=== PATIENT | male | born 1980 | race Caucasian/White ===

== ENCOUNTER → 2017-06-29 | Outpatient (CLI) | payer OTHER ==
[~2017-06-29] MED LIST: BUPRTAB51 PO; MULT-506 PO; OMEP20CA59 PO
[2017-06-29 10:18] LABS: BASO % 0.2 %; BASO ABS # 0.01 K/uL (0-0.2); EOS % 3.4 %; HEMATOCRIT 40.3 % (42-52); HEMOGLOBIN 13.7 g/dL (14.0-18.0); IG# 0.03 K/uL (0.00-0.02); LYMPH % 26.8 %; LYMPH ABS # 1.57 K/uL (1.2-3.4); MEAN CELL VOLUME 87.4 fL (80-100); MEAN CORPUSCULAR HEMOGLOBIN 29.7 pg (25-34); MONO % 4.1 %; MONO ABS # 0.24 K/uL (0.11-0.59); PLATELET COUNT 219 K/uL (130-400); RED CELL DISTRIBUTION WIDTH CV 12.8 % (11.5-14.5); RED CELL DISTRIBUTION WIDTH SD 41.3 fL (36.4-46.3); WHITE BLOOD COUNT 5.85 K/uL (4.8-10.8)
[2017-06-29 10:48] LABS: ALBUMIN 3.5 gm/dl (3.4-5.0); ALT/SGPT 28 U/L (12-78); AST/SGOT 15 U/L (15-37); BLOOD UREA NITROGEN 15 mg/dl (7-18); CALCIUM 8.6 mg/dl (8.5-10.1); CARBON DIOXIDE 30 mmol/L (21-32); CREATININE 0.99 mg/dl (0.60-1.40); GLUCOSE 95 mg/dl (70-99); POTASSIUM 3.9 mmol/L (3.5-5.1); SODIUM 141 mmol/L (136-145)
[2017-06-29 10:51] LABS: ALKALINE PHOSPHATASE 66 U/L (45-117); TOTAL PROTEIN 7.2 gm/dl (6.4-8.2)
== END | disposition home or self-care (01) ==
LOC: C.LAB1850 09:24
PROVIDERS: ATTEND Internal Medicine Pulmonary Disease
DX: L50.8 Other urticaria (principal)

== ENCOUNTER 2022-03-12 20:19 | Inpatient (IN) ==
--- NOTE | 2022-03-12 20:46 | XRay Report ---
XR chest 1V portable HISTORY: 41 years-old Male hypertension acute hypertension COMPARISON: None TECHNIQUE: AP view of the chest FINDINGS: Cardiomediastinal and hilar silhouettes are within normal limits. No pneumothorax, pleural effusion, airspace consolidation or overt pulmonary edema. Bones of the chest appear grossly intact. IMPRESSION: No acute process. ACT 112: Negative or not required by law. The above report was generated using voice recognition software. It may contain grammatical, syntax o r spelling errors. Electronically signed by: Caleb Johnson M.D. 03/12/2022 8:45 PM
[2022-03-12 20:53] LABS: Basophils # (auto) 0.06 K/uL (0-0.2); Basophils % (auto) 0.6 %; Eosinophils # (auto) 0.18 K/uL (0-0.50); Eosinophils % (auto) 1.7 %; Hematocrit (blood only) 46.7 % (40.1-51.0); Hemoglobin 16.8 g/dl (14.0-18.0); Immature Granulocytes # (auto) 0.04 K/uL (0.00-0.02); Immature Granulocytes % (auto) 0.4 %; Lymphocytes # (auto) 2.21 K/uL (1.2-3.4); Lymphocytes % (auto) 21.4 %; Mean Corpuscular Volume 86.2 fL (80.0-100.0); Mean Platelet Volume 8.8 fL (9.4-12.4); Monocytes # (auto) 0.65 K/uL (0.24-0.82); Monocytes % (auto) 6.3 %; Neutrophils # (auto) 7.21 K/uL (1.4-6.5); Neutrophils % (auto) 69.6 %; Platelet Count 234 K/uL (130-400); RDW Coefficient of Variation 12.5 % (11.5-14.5); RDW Standard Deviation 38.6 fL (36.4-46.3); Red Blood Count 5.42 M/uL (4.63-6.08); White Blood Count 10.35 K/ul (4.8-10.8)
--- NOTE | 2022-03-12 20:53 | CT Scan Report ---
CT head/brain wo con CLINICAL HISTORY: 41 years-old Male with hypertension, VALENTINO. Acute hypertension with headache TECHNIQUE: Multiple axial CT images of the head were obtained without contrast. A dose lowering tech nique was utilized adhering to the principles of ALARA. CT DOSE: 884.08 mGy.cm COMPARISON: None. FINDINGS: No acute intracranial hemorrhage, midline shift, intracranial mass, hydrocephalus, territorial ischem ia or abnormal extra-axial collection. Low-lying cerebellar tonsils. Mildly motion degraded exam. The calvarium is intact. The paranasal sinuses, mastoid air cells, and middle ear cavities are clear . IMPRESSION: No acute intracranial abnormality. ACT 112: Negative or not required by law. The above report was generated using voice recognition software. It may contain grammatical, syntax o r spelling errors. Electronically signed by: Caleb Johnson M.D. 03/12/2022 8:50 PM
[2022-03-12 21:20] LABS: Albumin Globulin Ratio 1.4 (0.9-2); Albumin Level 4.6 gm/dl (3.4-5.0); BUN Creatinine Ratio 12.6 (10-20); Bilirubin,Total 1.1 mg/dl (0.2-1.0); Calcium 9.3 mg/dl (8.5-10.1); Creatinine Clr Calc Pharmacy 148.4 ml/min; Est GFR (African American) 115.6 ml/min; Est GFR (Non-African American) 99.7 ml/min; Globulin 3.4 gm/dl (2.5-4.0); Potassium 3.1 mmol/L (3.5-5.1)
[2022-03-12] MEDS ORDERED: LORazepam 2 MG/1 ML VIAL ONE (23:16)
[2022-03-12] MEDS ORDERED: SODIUM CHLORIDE 0.9% 1,000 ML IV ONE (23:31)
[2022-03-12] MEDS ORDERED: LORazepam 2 MG/1 ML VIAL IV STA (23:31)
[2022-03-13] MEDS ORDERED: LORazepam 2 MG/1 ML VIAL IV STA ×2 (00:07→03:49)
[2022-03-13] MEDS ORDERED: SODIUM CHLORIDE 0.9% 1000ML 1,000 ML IV ONE (00:33)
[2022-03-13] MEDS ORDERED: MULTI-VITAMIN INFUSION 10 ML, THIAMINE HCL 100 MG, FOLIC ACID 1 MG in SODIUM CHLORIDE 0... IV ONE (00:50)
--- NOTE | 2022-03-13 00:59 | Emergency Department Note ---
Impression & Plan Alcohol withdrawal, [facility] NAME: NAKIA CHAVEZ AGE: 41 SEX: M ARRIVES VIA: Walk-In INFORMANT: Patient ED PROVIDER(S): Thais Huizar DO CHIEF COMPLAINT: Alcohol withdrawal and anxiety PLAN: Disposition: Admit to the [facility] Condition: Stable MEDICAL DECISION MAKING: This is a 41-year-old male patient presents to the emergency department complaining of alcohol withdrawal and anxiety. The patient has had significant increase in alcohol use over the past couple of months as a result of stress related to his divorce. He presented to the emergency department tonight with a headache and hypertension along with vomiting and sweating. He admits that he decided to stop drinking today and believes he is withdrawing. The patient is significantly hypertensive and tachycardic. He has a normal CT scan of the brain and negative chest x-ray. He does have a low sodium, chloride, and potassium. He has slight elevation to total bilirubin, AST and ALT. Patient was bolused with IV normal saline solution and a banana bag. He was given multiple doses of IV Ativan to help with his anxiety and elevated blood pressure. He was given a dose of IV labetalol to bring the heart rate and blood pressure down as well. Patient also was given a dose of oral Librium. After review of the information above and other included data, I feel the patient will require admission to the hospital. [facility] and [facility] will evaluate for further management. Triage Nursing notes reviewed and agree with them. Vital Signs: reviewed and remarkable for hypertension and tachycardia Differential diagnosis: Mood disorder, alcohol withdrawal, hypertensive crisis, hypertensive urgency ER treatment provided: IV Ativan x2 IV normal saline IV banana bag IV labetalol Oral Librium Twelve-lead EKG radiation monitor Diagnostics interpreted by me: ECG: Sinus tachycardia at a rate of [address] segment elevation or signs of ischemia. There is no ectopy. Cardiac Monitoring: Sinus tachycardia at 110 Laboratory studies: See below Imaging studies: As per my interpretation Portable chest x-ray: No acute pulmonary findings HPI: 41/M arrives for evaluation of headache and hypertension. ROS: See above HPI for pertinent positives & negatives. A total of 10 systems reviewed and were otherwise negative. PAST MEDICAL HISTORY:Hypertension; GERD; anxiety PAST SURGICAL HISTORY:See Below FAMILY HISTORY:See Below SOCIAL HISTORY:Patient works as a [employer] company; he is going through a divorce; he does drink alcohol HOME MEDICATIONS:See list ALLERGIES:None VITALS:See Below PHYSICAL EXAMINATION: HEENT: Head - normocephalic and atraumatic. Pupils are equal, round, and reactive to light. Extraocular eye muscles are intact, and sclera are anict douglas. Nose - moist nasal mucosa without discharge. Mouth - moist buccal mucosa. Oropharynx is nonerythematous and there is no tonsillar exudate or edema noted. Neck: Supple; no cervical lymphadenopathy or JVD Heart: Tachycardic rate and regular rhythm. There is a normal S1 and S2 with no murmurs, clicks, or gallops appreciated. Lungs: Clear to auscultation bilaterally with no wheezes, rales, or rhonchi. Abdomen: Soft, completely nontender, nondistended, with good bowel sounds. There are no palpable pulsatile masses or hepatosplenomegaly. There is no guarding, rigidity, or rebound noted. Extremities: No evidence of cyanosis, clubbing, or edema. There are easily palpable peripheral pulses. Skin: warm and dry with good turgor and no rashes. ED COURSE: Times/Reassessments: 2305: Patient was evaluated in room C1. IV lock was initiated and labs are drawn as above. An order was placed for continuous cardiac monitoring. The patient was in a sinus tachycardia at a rate of 110. A twelve-lead EKG was obtained as described above. Patient was bolused with 1 L of normal saline solution. He was given a dose of IV Ativan. This did bring the blood pressure down slightly and did control his anxiety. A portable chest x-ray was performed. Patient was reevaluated and he was feeling slightly better. He was given a se cond dose of IV Ativan. Patient remained hypertensive and was given a dose of IV labetalol. An alcohol level was drawn and found to be 0. The patient was started on a banana bag and given a dose of oral Librium. I had a lengthy conversation with the patient about his alcohol abuse. I discussed the case with the [facility] Hospitalist. Thais Huizar DO Past Med/Surg History Medical History (Updated 03/13/22 @ 06:49 by Thais Huizar DO) Depression GERD (gastroesophageal reflux disease) Hypertension Obesity Surgical History (Updated 09/10/21 @ 16:50 by Fredi Jackson MD) No pertinent past surgical history Social History (Updated 09/10/21 @ 16:50 by Fredi Jackson MD) Smoking Status: Former smoker Tobacco Type: Cigarettes Hx Alcohol Use: Yes Alcohol type: hard liquor Hx Substance Use: No Preferred Language: Tunisian [employer] Required: No Beliefs That Will Affect Care: None Current Living Situation: Alone Feels Safe at Home: Yes Allergies Allergies Allergy/AdvReac Type Severity Reaction Status Date / Time No Known Allergies Allergy Unknown Verified 03/12/22 22:54 Home Meds Home Medications Medication Instructions Recorded Confirmed bupropion HCl 300 mg 24 hr tablet, 300 mg PO DAILY 03/12/22 03/12/22 extended release lisinopril 20 1 tab PO DAILY 03/12/22 03/12/22 mg-hydrochlorothiazide 25 mg tablet omeprazole 40 mg capsule,delayed 40 mg PO DAILY 03/12/22 03/12/22 release Results & Data (ED) Vital Signs Vital Signs - 24 hr 03/12/22 20:20 03/12/22 23:00 03/12/22 23:23 Temperature 36.5 C Temperature Source Temporal Artery Scan Pulse Rate 123 H Pulse Rate [Apical] 106 H 109 H Pulse Rate from SpO2 Sensor Pulse Rhythm [Apical] Regular Respiratory Rate 20 17 20 Respiratory Effort / Characteristics Non-Labored Spontaneous Non-Labored Respiratory Depth Normal Normal Blood Pressure 205/123 H Blood Pressure [Right Arm] 233/149 H 163/103 H Blood Pressure Mean 150 Blood Pressure Mean [Right Arm] 177 123 Blood Pressure Position Sitting Pulse Oximetry 96 96 95 Oxygen Delivery Method Room Air Room Air Sepsis Recent Fever Within 48 Hours No Sepsis New/Unexplained Change in Mental Status N/A Sepsis Action Taken by Nursing No Action Required 03/13/22 00:00 03/12/22 22:58 03/12/22 23:00 Temperature Temperature Source Pulse Rate 120 H 115 H Pulse Rate [Apical] 100 H Pulse Rate from SpO2 Sensor 120 H 114 H Pulse Rhythm [Apical] Regular Respiratory Rate 18 22 17 Respiratory Effort / Characteristics Respiratory Depth Blood Pressure Blood Pressure [Right Arm] 156/104 H Blood Pressure Mean Blood Pressure Mean [Right Arm] 121 Blood Pressure Position Pulse Oximetry 95 96 97 Oxygen Delivery Method Room Air Sepsis Recent Fever Within 48 Hours Sepsis New/Unexplained Change in Mental Status Sepsis Action Taken by Nursing 03/12/22 23:23 03/12/22 23:23 03/12/22 23:30 Temperature Temperature Source Pulse Rate 114 H 104 H Pulse Rate [Apical] Pulse Rate from SpO2 Sensor 110 H 103 H Pulse Rhythm [Apical] Respiratory Rate 19 18 Respiratory Effort / Characteristics Respiratory Depth Blood Pressure 163/103 H Blood Pressure [Right Arm] Blood Pressure Mean 123 Blood Pressure Mean [Right Arm] Blood Pressure Position Pulse Oximetry 92 95 Oxygen Delivery Method Sepsis Recent Fever Within 48 Hours Sepsis New/Unexplained Change in Mental Status Sepsis Action Taken by Nursing 03/13/22 00:00 03/13/22 00:30 03/13/22 01:00 Temperature Temperature Source Pulse Rate 106 H 110 H 106 H Pulse Rate [Apical] Pulse Rate from SpO2 Sensor 105 H 110 H 106 H Pulse Rhythm [Apical] Respiratory Rate 19 20 22 Respiratory Effort / Characteristics Respiratory Depth Blood Pressure Blood Pressure [Right Arm] Blood Pressure Mean Blood Pressure Mean [Right Arm] Blood Pressure Position Pulse Oximetry 96 94 96 Oxygen Delivery Method Sepsis Recent Fever Within 48 Hours Sepsis New/Unexplained Change in Mental Status Sepsis Action Taken by Nursing 03/13/22 01:30 03/13/22 01:30 03/13/22 02:00 Temperature Temperature Source Pulse Rate 100 H 87 Pulse Rate [Apical] Pulse Rate from SpO2 Sensor 101 H 88 Pulse Rhythm [Apical] Respiratory Rate 18 19 Respiratory Effort / Characteristics Respiratory Depth Blood Pressure 182/118 H 169/109 H Blood Pressure [Right Arm] Blood Pressure Mean 139 129 Blood Pressure Mean [Right Arm] Blood Pressure Position Pulse Oximetry 97 94 Oxygen Delivery Method Sepsis Recent Fever Within 48 Hours Sepsis New/Unexplained Change in Mental Status Sepsis Action Taken by Nursing 03/13/22 02:30 03/13/22 02:30 03/13/22 02:45 Temperature Temperature Source Pulse Rate 83 92 H Pulse Rate [Apical] Pulse Rate from SpO2 Sensor 89 91 H Pulse Rhythm [Apical] Respiratory Rate 19 17 Respiratory Effort / Characteristics Respiratory Depth Blood Pressure 161/113 H Blood Pressure [Right Arm] Blood Pressure Mean 129 Blood Pressure Mean [Right Arm] Blood Pressure Position Pulse Oximetry 96 97 Oxygen Delivery Method Sepsis Recent Fever Within 48 Hours Sepsis New/Unexplained Change in Mental Status Sepsis Action Taken by Nursing 03/13/22 03:00 03/13/22 03:15 03/13/22 03:15 Temperature Temperature Source Pulse Rate 93 H 85 Pulse Rate [Apical] Pulse Rate from SpO2 Sensor 91 H Pulse Rhythm [Apical] Respiratory Rate 20 22 Respiratory Effort / Characteristics Respiratory Depth Blood Pressure 181/122 H Blood Pressure [Right Arm] Blood Pressure Mean 141 Blood Pressure Mean [Right Arm] Blood Pressure Position Pulse Oximetry 97 Oxygen Delivery Method Sepsis Recent Fever Within 48 Hours Sepsis New/Unexplained Change in Mental Status Sepsis Action Taken by Nursing 03/13/22 03:16 03/13/22 03:17 03/13/22 03:17 Temperature Temperature Source Pulse Rate 85 90 Pulse Rate [Apical] Pulse Rate from SpO2 Sensor 85 89 Pulse Rhythm [Apical] Respiratory Rate 22 25 H Respiratory Effort / Characteristics Respiratory Depth Blood Pressure 174/124 H Blood Pressure [Right Arm] Blood Pressure Mean 140 Blood Pressure Mean [Right Arm] Blood Pressure Position Pulse Oximetry 96 96 Oxygen Delivery Method Sepsis Recent Fever Within 48 Hours Sepsis New/Unexplained Change in Mental Status Sepsis Action Taken by Nursing 03/13/22 03:30 03/13/22 03:40 03/13/22 03:40 Temperature Temperature Source Pulse Rate 84 87 Pulse Rate [Apical] Pulse Rate from SpO2 Sensor 89 86 Pulse Rhythm [Apical] Respiratory Rate 19 23 Respiratory Effort / Characteristics Respiratory Depth Blood Pressure 175/120 H 175/120 H Blood Pressure [Right Arm] Blood Pressure Mean 138 138 Blood Pressure Mean [Right Arm] Blood Pressure Position Pulse Oximetry 96 96 Oxygen Delivery Method Sepsis Recent Fever Within 48 Hours Sepsis New/Unexplained Change in Mental Status Sepsis Action Taken by Nursing 03/13/22 03:45 03/13/22 04:00 03/13/22 04:01 Temperature Temperature Source Pulse Rate 85 89 Pulse Rate [Apical] Pulse Rate from SpO2 Sensor 88 Pulse Rhythm [Apical] Respiratory Rate 20 19 Respiratory Effort / Characteristics Respiratory Depth Blood Pressure 185/130 H Blood Pressure [Right Arm] Blood Pressure Mean 148 Blood Pressure Mean [Right Arm] Blood Pressure Position Pulse Oximetry 93 Oxygen Delivery Method Sepsis Recent Fever Within 48 Hours Sepsis New/Unexplained Change in Mental Status Sepsis Action Taken by Nursing 03/13/22 04:01 Temperature Temperature Source Pulse Rate 89 Pulse Rate [Apical] Pulse Rate from SpO2 Sensor 89 Pulse Rhythm [Apical] Respiratory Rate 21 Respiratory Effort / Characteristics Respiratory Depth Blood Pressure Blood Pressure [Right Arm] Blood Pressure Mean Blood Pressure Mean [Right Arm] Blood Pressure Position Pulse Oximetry 94 Oxygen Delivery Method Sepsis Recent Fever Within 48 Hours Sepsis New/Unexplained Change in Mental Status Sepsis Action Taken by Nursing Laboratory Data Result diagrams: 03/12/22 20:36 03/12/22 20:36 Lab Results 03/12/22 03/12/22 03/13/22 Range/Units 20:36 20:36 01:20 WBC 10.35 (4.8-10.8) K/ul RBC 5.42 (4.63-6.08) M/uL Hgb 16.8 (14.0-18.0) g/dl Hct 46.7 (40.1-51.0) % MCV 86.2 (80.0-100.0) fL MCH 31.0 (25.0-34.0) pg MCHC 36.0 (32.0-36.0) g/dL RDW Std Deviation 38.6 (36.4-46.3) fL RDW Coeff of Sveta 12.5 (11.5-14.5) % Plt Count 234 (130-400) K/uL MPV 8.8 L (9.4-12.4) fL Immature Gran % (Auto) 0.4 % Neut % (Auto) 69.6 % Lymph % (Auto) 21.4 % Whitfield % (Auto) 6.3 % Eos % (Auto) 1.7 % Baso % (Auto) 0.6 % Neut # (Auto) 7.21 H (1.4-6.5) K/uL Lymph # (Auto) 2.21 (1.2-3.4) K/uL Whitfield # (Auto) 0.65 (0.24-0.82) K/uL Eos # (Auto) 0.18 (0-0.50) K/uL Baso # (Auto) 0.06 (0-0.2) K/uL Immature Gran # (Auto) 0.04 H (0.00-0.02) K/uL Sodium 133 L (136-145) mmol/L Potassium 3.1 L (3.5-5.1) mmol/L Chloride 95 L (98-107) mmol/L Carbon Dioxide 28 (21-32) mmol/L Anion Gap 10 (3-11) BUN 12 (6-23) mg/dl Creatinine 0.95 (0.6-1.4) mg/dl Est Cr Clr Drug Dosing 148.4 ml/min Est GFR ( Amer) 115.6 ml/min Est GFR (Non-Af Amer) 99.7 ml/min BUN/Creatinine Ratio 12.6 (10-20) Glucose 127 H (70-99(Fasting)) mg/dl Calcium 9.3 (8.5-10.1) mg/dl Magnesium (1.7-2.4) mg/dl Total Bilirubin 1.1 H (0.2-1.0) mg/dl AST 51 H (13-39) U/L ALT 78 H (7-52) U/L Alkaline Phosphatase 57 (34-104) U/L Total Protein 8.0 (6.0-8.3) gm/dl Albumin 4.6 (3.4-5.0) gm/dl Globulin 3.4 (2.5-4.0) gm/dl Albumin/Globulin Ratio 1.4 (0.9-2) Ethyl Alcohol mg/dL < 10.0 (<10.0) mg/dl SARS-CoV-2, RNA, NAAT (NEGATIVE) 03/13/22 03/13/22 Range/Units 01:20 04:04 WBC (4.8-10.8) K/ul RBC (4.63-6.08) M/uL Hgb (14.0-18.0) g/dl Hct (40.1-51.0) % MCV (80.0-100.0) fL MCH (25.0-34.0) pg MCHC (32.0-36.0) g/dL RDW Std Deviation (36.4-46.3) fL RDW Coeff of Sveta (11.5-14.5) % Plt Count (130-400) K/uL MPV (9.4-12.4) fL Immature Gran % (Auto) % Neut % (Auto) % Lymph % (Auto) % Whitfield % (Auto) % Eos % (Auto) % Baso % (Auto) % Neut # (Auto) (1.4-6.5) K/uL Lymph # (Auto) (1.2-3.4) K/uL Whitfield # (Auto) (0.24-0.82) K/uL Eos # (Auto) (0-0.50) K/uL Baso # (Auto) (0-0.2) K/uL Immature Gran # (Auto) (0.00-0.02) K/uL Sodium (136-145) mmol/L Potassium (3.5-5.1) mmol/L Chloride (98-107) mmol/L Carbon Dioxide (21-32) mmol/L Anion Gap (3-11) BUN (6-23) mg/dl Creatinine (0.6-1.4) mg/dl Est Cr Clr Drug Dosing ml/min Est GFR ( Amer) ml/min Est GFR (Non-Af Amer) ml/min BUN/Creatinine Ratio (10-20) Glucose (70-99(Fasting)) mg/dl Calcium (8.5-10.1) mg/dl Magnesium 1.9 (1.7-2.4) mg/dl Total Bilirubin (0.2-1.0) mg/dl AST (13-39) U/L ALT (7-52) U/L Alkaline Phosphatase (34-104) U/L Total Protein (6.0-8.3) gm/dl Albumin (3.4-5.0) gm/dl Globulin (2.5-4.0) gm/dl Albumin/Globulin Ratio (0.9-2) Ethyl Alcohol mg/dL (<10.0) mg/dl SARS-CoV-2, RNA, NAAT NEGATIVE (NEGATIVE) Administered Medications Potassium Chloride (K Kervin / Wtr) 10 meq in 100 mls @ 100 mls/hr IV Q1H [facility] Stop: 03/13/22 07:59 Last Admin: 03/13/22 06:50 Dose: 100 mls/hr Documented By: Infusion: 03/13/22 06:49 Dose: 0 mls/hr Documented By: Admin: 03/13/22 05:45 Dose: 100 mls/hr Documented By: Infusion: 03/13/22 05:45 Dose: 0 mls/hr Documented By: Admin: 03/13/22 04:39 Dose: 100 mls/hr Documented By: EMB Discontinued Medications Chlordiazepoxide HCl (Chlordiazepoxide Hcl 25 Mg Cap) 50 mg PO NOW ONE Stop: 03/13/22 02:35 Last Admin: 03/13/22 02:52 Dose: 50 mg Documented By: EMB Clonidine HCl (Clonidine Hcl 0.1 Mg Tab) 0.2 mg PO NOW ONE Stop: 03/13/22 03:51 Last Admin: 03/13/22 03:58 Dose: 0.2 mg Documented By: GEE Sodium Chloride (Nss) 1,000 mls @ 999 mls/hr IV .Q1H1M ONE Stop: 03/13/22 00:31 Last Infusion: 03/13/22 00:45 Dose: 0 mls/hr Documented By: Admin: 03/12/22 23:32 Dose: 999 mls/hr Documented By: GEE Sodium Chloride (Nss 1000ml) 1,000 mls @ 999 mls/hr IV .Q1H1M ONE Stop: 03/13/22 01:33 Last Infusion: 03/13/22 02:00 Dose: 0 mls/hr Documented By: Admin: 03/13/22 00:44 Dose: 999 mls/hr Documented By: GEE Multivitamins 10 ml/ Thiamine HCl 100 mg/ Folic Acid 1 mg/Sodium Chloride 1,011.2 mls @ 1,011.2 mls/hr IV .Q1H ONE Stop: 03/13/22 01:49 Last Infusion: 03/13/22 02:57 Dose: 0 mls/hr Documented By: Admin: 03/13/22 01:57 Dose: 1,011.2 mls/hr Documented By: GEE Labetalol HCl (Labetalol Hcl Iv 5 Mg/Ml 20ml) 10 mg IV NOW STA Stop: 03/13/22 01:46 Last Admin: 03/13/22 01:57 Dose: 10 mg Documented By: GEE Co-signed By: DARBY Lorazepam (Lorazepam 2 Mg/1 Ml Vial) Confirm Administered Dose 2 mg .ROUTE .STK- MED ONE Stop: 03/12/22 23:17 Last Admin: 03/12/22 23:32 Dose: Not Given Documented By: GEE Lorazepam (Lorazepam 2 Mg/1 Ml Vial) 1 mg IV NOW STA Stop: 03/12/22 23:32 Last Admin: 03/12/22 23:32 Dose: 1 mg Documented By: GEE Lorazepam (Lorazepam 2 Mg/1 Ml Vial) 1 mg IV NOW STA Stop: 03/13/22 00:08 Last Admin: 03/13/22 00:16 Dose: 1 mg Documented By: GEE Lorazepam (Lorazepam 2 Mg/1 Ml Vial) 1 mg IV NOW STA Stop: 03/13/22 03:50 Last Admin: 03/13/22 03:58 Dose: 1 mg Documented By: EMB Imaging Data Radiologist's Impression: Chest X-Ray 03/12/22 20:27 XR chest 1V portable HISTORY: 41 years-old Male hypertension acute hypertension COMPARISON: None TECHNIQUE: AP view of the chest FINDINGS: Cardiomediastinal and hilar silhouettes are within normal limits. No pneumothorax, pleural effusion, airspace consolidation or overt pulmonary edema. Bones of the chest appear grossly intact. IMPRESSION: No acute process. ACT 112: Negative or not required by law. The above report was generated using voice recognition software. It may contain grammatical, syntax or spelling errors. Electronically signed by: Caleb Johnson M.D. 03/12/2022 8:[address] 03/12/22 20:27 CT head/brain wo con CLINICAL HISTORY: 41 years-old Male with hypertension, VALENTINO. Acute hypertension with headache TECHNIQUE: Multiple axial CT images of the head were obtained without contrast. A dose lowering technique was utilized adhering to the principles of ALARA. CT DOSE: 884.08 mGy.cm COMPARISON: None. FINDINGS: No acute intracranial hemorrhage, midline shift, intracranial mass, hydrocephalus, territorial ischemia or abnormal extra-axial collection. Low- lying cerebellar tonsils. Mildly motion degraded exam. The calvarium is intact. The paranasal sinuses, mastoid air cells, and middle ear cavities are clear. IMPRESSION: No acute intracranial abnormality. ACT 112: Negative or not required by law. The above report was generated using voice recognition software. It may contain grammatical, syntax or spelling errors. Electronically signed by: Caleb Johnson M.D. 03/12/2022 8:50 PM Discharge Plan Visit Data Chief Complaint: Headache Stated Complaint: HIGH BLOOD PRESSURE, HEADACHE ED Provider: Thais Huizar Discharge Problem: Alcohol withdrawal, Hypertension Patient Disposition: Admitted As Inpatient Discharge Instructions Interventions: ED Discharge Assessment Last Done: 03/13/22 05:16 : Alcohol withdrawal Qualifiers: Complication of substance-induced condition: with unspecified complication Qualified Code(s): F10.939 - Alcohol use, unspecified with withdrawal, unspecified Hypertension Qualifiers: Hypertension type: unspecified secondary hypertension Qualified Code(s): I15.9 - Secondary hypertension, unspecified
[2022-03-13] MEDS ORDERED: LABETALOL HCL IV 5 MG/ML 20ML IV STA (01:45)
[2022-03-13] MEDS ORDERED: chlordiazePOXIDE HCl 25 MG CAP PO ONE (02:34)
[2022-03-13 03:15] LABS: Appearance Urine Clear (Clear); Bacteria Urine Automated Negative (Negative); Bilirubin Urine Negative (Negative); Blood Urine 2+ (Negative); Color Urine Yellow; Epithelial Cell Urine Auto 0-5 /lpf (0-5); Glucose Urine UA Negative (Negative); Ketones Urine Trace (Negative); Leukocyte Esterase Urine Trace (Negative); Nitrite Urine Negative (Negative); Protein Urine 1+ (Negative); Specific Gravity Urine 1.014 (1.000-1.030); Urobilinogen Urine Negative (Negative); pH Urine 6.5 (4.5-7.5)
[2022-03-13] MEDS ORDERED: cloNIDine HCL 0.1 MG TAB PO ONE (03:50)
[2022-03-13] MEDS ORDERED: METOPROLOL TARTRATE 1 MG/ML VIAL IV PRN (04:11)
--- NOTE | 2022-03-13 04:11 | History & Physical Report ---
Date of Service March 13, 2022 Assessment & Plan (1) Alcohol withdrawal: (2) GERD (gastroesophageal reflux disease): (3) Hypertension: (4) Hypokalemia: (5) Transaminitis: (6) Depression: (7) Obesity: (8) Hyperglycemia: Plan Alcohol withdrawal/alcohol abuse- Patient reports daily intake over the past 2 months associated with depression and stress associated with divorce Showing symptoms of anxiousness, tremor, elevated blood pressure and elevated heart rate Placed on QUINTON S protocol with IV Ativan Clonidine 0.2 mg p.o. every 8 hours Alcohol cessation counseling Hypokalemia- Potassium 3.1 on admission Replace with IV K riders x4, and recheck laboratories in a.m. Check a magnesium level Hypertension- Continue lisinopril/HCTZ Placed on clonidine 0.2 mg p.o. every 8 hours Depression- Continue bupropion chloride 300 mg p.o. daily GERD- Continue omeprazole/pantoprazole 40 mg daily Transaminitis- AST 51, ALT 78- Follow laboratory serially May need hepatitis screening if laboratories persist being elevated Hyperglycemia- Placed on heart healthy diet, patient has been on a low carbohydrate diet in the outpatient world History of Present Illness Chief Complaint: The patient presents to the emergency department with complaint of alcohol withdrawal symptoms, anxiety, jitteriness, tremors. He has also had nausea over the past 24 hours, and did have a few episodes of vomiting this morning. Primary Care Provider: Fabien Mulligan The patient is a 41-year-old male with a past medical history including depress ion, hypertension, GERD and colitis who presents to the emergency department with concerns regarding alcohol withdrawal as noted above. Patient reports that he has been drinking regularly over the past 2 months in response to the stress of undergoing a divorce. He reports his last alcohol intake was 48 to 72 hours ago, and he started experiencing symptoms for the past 24 hours Allergies Allergy/AdvReac Type Severity Reaction Status Date / Time No Known Allergies Allergy Unknown Verified 03/12/22 22:54 Home Medications Medication Instructions Recorded Confirmed Type bupropion HCl 300 mg 24 hr tablet, 300 mg PO DAILY 03/12/22 03/12/22 History extended release lisinopril 20 1 tab PO DAILY 03/12/22 03/12/22 History mg-hydrochlorothiazide 25 mg tablet omeprazole 40 mg capsule,delayed 40 mg PO DAILY 03/12/22 03/12/22 History release Past Med/Surg History Medical History (Updated 03/13/22 @ 04:53 by Jr Holliday MD) Depression GERD (gastroesophageal reflux disease) Hypertension Obesity Surgical History (Updated 09/10/21 @ 16:50 by Fredi Jackson MD) No pertinent past surgical history Social History (Updated 09/10/21 @ 16:50 by Fredi Jackson MD) Smoking Status: Former smoker Tobacco Type: Cigarettes Hx Alcohol Use: Yes Hx Substance Use: No Preferred Language: Portuguese Feels Safe at Home: Yes Review of Systems Review of Systems: The patient denies chest pain, palpitations, shortness of breath, dyspnea on exertion, cough, lower extremity swelling, sore throat, fevers, chills, sweats, diarrhea , constipation, abdominal pain, pelvic pain, blood in urine or stool, dysuria, urinary frequency or urgency, memory loss, loss of consciousness, rash, abnormal bruising or bleeding, imbalance, focal or generalized weakness, numbness or tingling in arms or legs, generalized arthralgias or myalgias, back or neck pain, or night sweats. The review of systems is otherwise negative other than for that already noted above, and at least 10 systems have been reviewed. Physical Exam Physical Exam: The patient is awake, alert and oriented 3, well developed and well nourished, normocephalic and atraumatic, lying in bed and in no acute distress. HEENT--PERRL, EOMI, mucous membranes and oropharynx dry. Neck--supple. No JVD. No bruits. Thyroid normal, trachea midline, no adenopathy. Heart--normal S1 and S2. No murmurs, rubs or gallops. Lungs--clear bilaterally, no respiratory distress, no accessory muscle use. Abdomen--normal bowel sounds and soft. Nontender. Nondistended. Morbidly obese Extremities--no cyanosis or clubbing. No edema. Dermatologic--normal skin turgor, normal color, no abnormal lymph nodes, no rash. Neurologic--cranial nerves II through XII grossly intact. Rheumatologic--normal range of motion. Psychiatric--intermittently anxious Results & Data Results & Data ([facility]) Vital Signs (Past 12 Hours) Vital Signs Temp Pulse Pulse Resp BP BP Pulse Ox 03/13/22 03:30 84 19 175/120 H 96 03/13/22 03:17 90 25 H 96 03/13/22 03:17 174/124 H 03/13/22 03:16 85 22 96 03/13/22 03:15 85 22 03/13/22 03:15 181/122 H 03/13/22 03:00 93 H 20 97 03/13/22 02:45 92 H 17 97 03/13/22 02:30 83 19 96 03/13/22 02:30 161/113 H 03/13/22 02:00 87 19 169/109 H 94 03/13/22 01:30 100 H 18 97 03/13/22 01:30 182/118 H 03/13/22 01:00 106 H 22 96 03/13/22 00:30 110 H 20 94 03/13/22 00:00 106 H 19 96 03/12/22 23:30 104 H 18 95 03/12/22 23:23 114 H 19 92 03/12/22 23:23 163/103 H 03/12/22 23:00 115 H 17 97 03/12/22 22:58 120 H 22 96 03/13/22 00:00 100 H 18 156/104 H 95 03/12/22 23:23 109 H 20 163/103 H 95 03/12/22 23:00 106 H 17 233/149 H 96 03/12/22 20:20 36.5 C 123 H 20 205/123 H 96 O2 Del Method 03/13/22 03:30 03/13/22 03:17 03/13/22 03:17 03/13/22 03:16 03/13/22 03:15 03/13/22 03:15 03/13/22 03:00 03/13/22 02:45 03/13/22 02:30 03/13/22 02:30 03/13/22 02:00 03/13/22 01:30 03/13/22 01:30 03/13/22 01:00 03/13/22 00:30 03/13/22 00:00 03/12/22 23:30 03/12/22 23:23 03/12/22 23:23 03/12/22 23:00 03/12/22 22:58 01/06/23 00:00 Room Air 03/12/22 23:23 03/12/22 23:00 Room Air 03/12/22 20:20 Room Air Laboratory Results Laboratory Results WBC 10.35 K/ul (4.8-10.8) 03/12/22 20:36 RBC 5.42 M/uL (4.63-6.08) 03/12/22 20:36 Hgb 16.8 g/dl (14.0-18.0) 03/12/22 20:36 Hct 46.7 % (40.1-51.0) 03/12/22 20:36 MCV 86.2 fL (80.0-100.0) 03/12/22 20:36 MCH 31.0 pg (25.0-34.0) 03/12/22 20:36 MCHC 36.0 g/dL (32.0-36.0) 03/12/22 20:36 RDW Std Deviation 38.6 fL (36.4-46.3) 03/12/22 20:36 RDW Coeff of Sveta 12.5 % (11.5-14.5) 03/12/22 20:36 Plt Count 234 K/uL (130-400) 03/12/22 20:36 MPV 8.8 fL (9.4-12.4) L 03/12/22 20:36 Immature Gran % (Auto) 0.4 % 03/12/22 20:36 Neut % (Auto) 69.6 % 03/12/22 20:36 Lymph % (Auto) 21.4 % 03/12/22 20:36 Cook % (Auto) 6.3 % 03/12/22 20:36 Eos % (Auto) 1.7 % 03/12/22 20:36 Baso % (Auto) 0.6 % 03/12/22 20:36 Neut # (Auto) 7.21 K/uL (1.4-6.5) H 03/12/22 20:36 Lymph # (Auto) 2.21 K/uL (1.2-3.4) 03/12/22 20:36 Cook # (Auto) 0.65 K/uL (0.24-0.82) 03/12/22 20:36 Eos # (Auto) 0.18 K/uL (0-0.50) 03/12/22 20:36 Baso # (Auto) 0.06 K/uL (0-0.2) 03/12/22 20:36 Immature Gran # (Auto) 0.04 K/uL (0.00-0.02) H 03/12/22 20:36 Sodium 133 mmol/L (136-145) L 03/12/22 20:36 Potassium 3.1 mmol/L (3.5-5.1) L 03/12/22 20:36 Chloride 95 mmol/L (98-107) L 03/12/22 20:36 Carbon Dioxide 28 mmol/L (21-32) 03/12/22 20:36 Anion Gap 10 (3-11) 03/12/22 20:36 BUN 12 mg/dl (6-23) 03/12/22 20:36 Creatinine 0.95 mg/dl (0.6-1.4) 03/12/22 20:36 Est Cr Clr Drug Dosing 148.4 ml/min 03/12/22 20:36 Est GFR ( Amer) 115.6 ml/min 03/12/22 20:36 Est GFR (Non-Af Amer) 99.7 ml/min 03/12/22 20:36 BUN/Creatinine Ratio 12.6 (10-20) 03/12/22 20:36 Glucose 127 mg/dl (70-99(Fasting)) H 03/12/22 20:36 Calcium 9.3 mg/dl (8.5-10.1) 03/12/22 20:36 Magnesium 1.9 mg/dl (1.7-2.4) 03/13/22 01:20 Total Bilirubin 1.1 mg/dl (0.2-1.0) H 03/12/22 20:36 AST 51 U/L (13-39) H 03/12/22 20:36 ALT 78 U/L (7-52) H 03/12/22 20:36 Alkaline Phosphatase 57 U/L (34-104) 03/12/22 20:36 Total Protein 8.0 gm/dl (6.0-8.3) 03/12/22 20:36 Albumin 4.6 gm/dl (3.4-5.0) 03/12/22 20:36 Globulin 3.4 gm/dl (2.5-4.0) 03/12/22 20:36 Albumin/Globulin Ratio 1.4 (0.9-2) 03/12/22 20:36 Urine Color Yellow 03/13/22 Unknown Urine Appearance Clear (Clear) 03/13/22 Unknown Urine pH 6.5 (4.5-7.5) 03/13/22 Unknown Ur Specific [place] 1.014 (1.000-1.030) 03/13/22 Unknown Urine Protein 1+ (Negative) H 03/13/22 Unknown Urine Glucose (UA) Negative (Negative) 03/13/22 Unknown Urine Ketones Trace (Negative) H 03/13/22 Unknown Urine Blood 2+ (Negative) H 03/13/22 Unknown Urine Nitrite Negative (Negative) 03/13/22 Unknown Urine Bilirubin Negative (Negative) 03/13/22 Unknown Urine Urobilinogen Negative (Negative) 03/13/22 Unknown Ur Leukocyte Esterase Trace (Negative) H 03/13/22 Unknown Urine WBC (Auto) 1-5 /hpf (0-5) 03/13/22 Unknown Urine RBC (Auto) 10-30 /hpf (0-4) H 03/13/22 Unknown U Hyaline Cast (Auto) 1-5 /lpf (0-5) 03/13/22 Unknown U Epithel Cells (Auto) 0-5 /lpf (0-5) 03/13/22 Unknown Urine Bacteria (Auto) Negative (Negative) 03/13/22 Unknown Ethyl Alcohol mg/dL < 10.0 mg/dl (<10.0) 03/13/22 01:20 SARS-CoV-2, RNA, NAAT NEGATIVE (NEGATIVE) 03/13/22 04:04 Impressions Chest X-Ray 03/12/22 20:27 XR chest 1V portable HISTORY: 41 years-old Male hypertension acute hypertension COMPARISON: None TECHNIQUE: AP view of the chest FINDINGS: Cardiomediastinal and hilar silhouettes are within normal limits. No pneumothorax, pleural effusion, airspace consolidation or overt pulmonary edema. Bones of the chest appear grossly intact. IMPRESSION: No acute process. ACT 112: Negative or not required by law. The above report was generated using voice recognition software. It may contain grammatical, syntax or spelling errors. Electronically signed by: Caleb Johnson M.D. 03/12/2022 8:[address] 03/12/22 20:27 CT head/brain wo con CLINICAL HISTORY: 41 years-old Male with hypertension, [place]. Acute hypertension with headache TECHNIQUE: Multiple axial CT images of the head were obtained without contrast. A dose lowering technique was utilized adhering to the principles of ALARA. CT DOSE: 884.08 mGy.cm COMPARISON: None. FINDINGS: No acute intracranial hemorrhage, midline shift, intracranial mass, hydro cephalus, territorial ischemia or abnormal extra-axial collection. Low-lying cerebellar tonsils. Mildly motion degraded exam. The calvarium is intact. The paranasal sinuses, mastoid air cells, and middle ear cavities are clear. IMPRESSION: No acute intracranial abnormality. ACT 112: Negative or not required by law. The above report was generated using voice recognition software. It may contain grammatical, syntax or spelling errors. Electronically signed by: Caleb Johnson M.D. 03/12/2022 8:50 PM Code Status & VTE Plan Code Status Full code VTE Prophylaxis Plan VTE Prophylaxis will be ordered: Yes
[2022-03-13] MEDS: POTASSIUM CHLORIDE / WTR 10 MEQ/100 ML PLCT IV SCH ×4 (04:39→08:02)
--- NOTE | 2022-03-13 04:57 | Billing Data ---
Date of Service March 13, 2022 Coding Level of Care Code 63876 INT INP/OBS CARE
[2022-03-13] MEDS ORDERED: LORazepam 2 MG/1 ML VIAL IV PRN ×3 (05:14)
[2022-03-13] MEDS ORDERED: ONDANSETRON INJ 2 MG/ML 2 ML VIAL IV PRN (05:14)
[2022-03-13] MEDS ORDERED: Ativan IV Alcohol Withdrawal--Active Protocol IV PRN (05:14)
[2022-03-13] MEDS: THIAMINE HCL 100 MG TAB PO SCH (09:04)
[2022-03-13] MEDS: LISINOPRIL/HCTZ 20/25MG 1 TAB PO SCH (09:04)
[2022-03-13] MEDS: NEPHROCAPS PO SCH ×2 (09:05→22:41)
[2022-03-13] MEDS: FOLIC ACID 1 MG TAB PO SCH (09:06)
[2022-03-13] MEDS: buPROPion XL 300 MG TABCR PO SCH (09:06)
[2022-03-13] MEDS: PANTOprazole 40 MG TAB PO SCH (09:07)
[2022-03-13] MEDS: cloNIDine HCL 0.1 MG TAB PO SCH ×3 (09:07→22:41)
[2022-03-13] MEDS: NSS + 20MEQ KCL 20 MEQ/1,000 ML BAG IV SCH ×2 (10:29→22:55)
--- NOTE | 2022-03-13 15:05 | Hospitalist Progress Note ---
Date of Service March 13, 2022 Assessment & Plan (1) Alcohol withdrawal: Plan: Supportive care. A WSS protocol. Intravenous Ativan as needed. Librium tapering dose (2) GERD (gastroesophageal reflux disease): Plan: PPI therapy (3) Hypertension: Plan: Controlled with current medications (4) Hypokalemia: Plan: Supplementation. Serial labs. Probably caused by chronic diuretic therapy (5) Transaminitis: Plan: Due to alcohol intake. Serial labs (6) Depression: Plan: Stable on bupropion. Supportive care (7) Obesity: Plan: Weight loss recommended (8) Hyperglycemia: Plan: Sliding scale coverage if needed. No diagnosis of type 2 diabetes to date. Plan Hopeful discharge to home later this week Admission and Anticipated Discharge Date Admission Date: March 13, 2022 Subjective Alert and oriented. No acute distress. Librium 10 mg 3 times a day added for alcohol withdrawal symptoms and anxiety. IV fluids taper down to 75. Potassium replacement continues. Review of Systems Review of Systems: Constitutional-no fever or chills ENT-no blurred vision, no double vision, no epistaxis, no sore throat Respiratory-no cough, no wheezing, no shortness of breath Cardiac-no palpitations, no chest pain, no syncope GI-no nausea, vomiting, diarrhea, melena, hematochezia -no urinary retention, no urinary incontinence, no dysuria, no hematuria Musculoskeletal-no joint pain, no muscle tenderness Skin-no bruising, no rashes, no pruritus Neuro-no isolated weakness, no paresthesia, no weakness Psych-anxiety Physical Exam Physical Exam: General-alert and oriented x3, no fevers, no chills HEENT-head atraumatic and normocephalic, pupils equal and reactive to light, extraocular muscles intact Neck-no lymphadenopathy or thyromegaly, trachea midline Chest-clear to auscultation percussion. No rales wheezing or rhonchi Cardiac-regular rate and rhythm, normal S1 and S2 Abdomen-normal bowel sounds, nontender, no hepatosplenomegaly Extremities-no cyanosis, clubbing, or edema Neuro-cranial nerves II through XII intact, motor and sensory function within normal limits, strength symmetrical, no focal deficits Psych-normal affect, normal mood Results & Data Results & Data ([facility]) Vital Signs (Past 12 Hours) Vital Signs Temp Pulse Pulse Resp BP BP Pulse Ox 03/13/22 14:07 89 18 147/103 H 97 03/13/22 09:11 03/13/22 09:11 90 18 96 03/13/22 06:30 85 21 129/88 98 03/13/22 06:00 84 21 96 03/13/22 06:00 150/99 H 03/13/22 05:45 80 19 03/13/22 05:30 75 20 93 03/13/22 05:30 126/77 03/13/22 05:15 77 22 95 03/13/22 05:00 85 20 96 03/13/22 05:00 137/93 03/13/22 05:43 37 C 88 14 126/77 92 03/13/22 04:45 88 22 97 03/13/22 04:41 165/97 H 03/13/22 04:41 91 H 21 03/13/22 04:30 88 22 97 03/13/22 04:15 86 21 03/13/22 04:01 89 21 94 03/13/22 04:01 185/130 H 03/13/22 04:00 89 19 93 03/13/22 03:45 85 20 03/13/22 03:40 175/120 H 03/13/22 03:40 87 23 96 03/13/22 03:30 84 19 175/120 H 96 03/13/22 03:17 90 25 H 96 03/13/22 03:17 174/124 H 03/13/22 03:16 85 22 96 03/13/22 03:15 85 22 03/13/22 03:15 181/122 H Pulse Ox O2 Del Method O2 Del Method 03/13/22 14:07 Room Air 03/13/22 09:11 96 Room Air 03/13/22 09:11 Room Air 03/13/22 06:30 03/13/22 06:00 03/13/22 06:00 03/13/22 05:45 03/13/22 05:30 03/13/22 05:30 03/13/22 05:15 03/13/22 05:00 03/13/22 05:00 03/13/22 05:43 Room Air 03/13/22 04:45 03/13/22 04:41 03/13/22 04:41 03/13/22 04:30 03/13/22 04:15 03/13/22 04:01 03/13/22 04:01 03/13/22 04:00 03/13/22 03:45 03/13/22 03:40 03/13/22 03:40 03/13/22 03:30 03/13/22 03:17 03/13/22 03:17 03/13/22 03:16 03/13/22 03:15 03/13/22 03:15 Laboratory Results 03/12/22 20:36 03/12/22 20:36 PG Care Time/CCT Total # of Minutes Spent Total Time Spent with Patient: Total time spent is greater than 50% in coordination of care (as documented) at patient's floor/unit and/or counseling patient: Coding Level of Care Code 19547 SUB INP/OBS CARE 3/50MIN Diagnoses Alcohol withdrawal F10.939 GERD (gastroesophageal reflux disease) K21.9 Hypertension I10 Hypokalemia E87.6 Transaminitis R74.01 Depression F32.A Obesity E66.9 Hyperglycemia R73.9
--- NOTE | 2022-03-13 15:54 | Electrocardiogram Report ---
Test Reason : Blood Pressure : / mmHG Vent. Rate : 118 BPM Atrial Rate : 118 BPM P-R Int : 148 ms QRS Dur : 088 ms QT Int : 328 ms P-R-T Axes : 034 000 019 degrees QTc Int : 459 ms Poor data quality, interpretation may be adversely affected Sinus tachycardia Possible Left atrial enlargement Left ventricular hypertrophy Nonspecific ST abnormality Abnormal ECG No previous ECGs available Confirmed by Otto Lezama ([id number]) on 03/13/2022 3:54:05 PM Referred By: REFERRED SELF Confirmed By:Otto Lezama
[2022-03-14 06:10] LABS: Albumin Globulin Ratio 1.3 (0.9-2); Albumin Level 3.7 gm/dl (3.4-5.0); BUN Creatinine Ratio 13.5 (10-20); Calcium 8.3 mg/dl (8.5-10.1); Creatinine Clr Calc Pharmacy 158.7 ml/min; Globulin 2.8 gm/dl (2.5-4.0); Magnesium 1.9 mg/dl (1.7-2.4); Potassium 3.7 mmol/L (3.5-5.1); Total Protein 6.5 gm/dl (6.0-8.3)
[2022-03-14 07:03] LABS: Basophils # (auto) 0.03 K/uL (0-0.2); Basophils % (auto) 0.4 %; Eosinophils # (auto) 0.13 K/uL (0-0.50); Eosinophils % (auto) 1.6 %; Hematocrit (blood only) 38.5 % (40.1-51.0); Hemoglobin 13.6 g/dl (14.0-18.0); Immature Granulocytes # (auto) 0.02 K/uL (0.00-0.02); Immature Granulocytes % (auto) 0.2 %; Lymphocytes # (auto) 1.75 K/uL (1.2-3.4); Lymphocytes % (auto) 21.3 %; Mean Corpuscular Hemoglobin 31.1 pg (25.0-34.0); Mean Corpuscular Hgb Conc 35.3 g/dL (32.0-36.0); Mean Corpuscular Volume 88.1 fL (80.0-100.0); Mean Platelet Volume 8.8 fL (9.4-12.4); Monocytes # (auto) 0.39 K/uL (0.24-0.82); Monocytes % (auto) 4.7 %; Neutrophils % (auto) 71.8 %; Platelet Count 181 K/uL (130-400); RDW Coefficient of Variation 12.8 % (11.5-14.5); RDW Standard Deviation 41.2 fL (36.4-46.3); Red Blood Count 4.37 M/uL (4.63-6.08); White Blood Count 8.22 K/ul (4.8-10.8)
[2022-03-14] MEDS: PANTOprazole 40 MG TAB PO SCH (07:51)
[2022-03-14] MEDS: FOLIC ACID 1 MG TAB PO SCH (07:51)
[2022-03-14] MEDS: LISINOPRIL/HCTZ 20/25MG 1 TAB PO SCH (07:51)
[2022-03-14] MEDS: buPROPion XL 300 MG TABCR PO SCH (07:51)
[2022-03-14] MEDS: THIAMINE HCL 100 MG TAB PO SCH (07:51)
[2022-03-14] MEDS: NEPHROCAPS PO SCH (07:51)
[2022-03-14] MEDS: cloNIDine HCL 0.1 MG TAB PO SCH ×2 (07:54→13:53)
== END 2022-03-14 15:24 | disposition home or self-care (01) | DRG 897 ==
LOC: ED 20:19 → EDINP 03-13 04:10 → 2N 03-13 05:16